=== PATIENT | female | born 1960 | race Caucasian/White ===

== ENCOUNTER 2017-06-29 03:41 | Inpatient (IN) | payer MEDICARE, OTHER ==
[~2017-06-29] VITALS: Ht 175.3 cm; Wt 79.5 kg
[~2017-06-29 03:41] MED LIST: CITA20TA19 PO; ONDA8TAB9 PO
[2017-06-29] MEDS ORDERED: clindamycin-Cleocin 900mg/D5W 50 ML IV ONE (03:55)
[2017-06-29 04:11] LABS: BASOPHILS # (AUTO) 0.1 X10'3 (0-0.2); BASOPHILS % (AUTO) 1.1 % (0-1); EOSINOPHILS # (AUTO) 0.2 X10'3 (0-0.9); EOSINOPHILS % (AUTO) 2.6 % (0-6); HEMATOCRIT 43.8 % (35.0-45.0); HEMOGLOBIN 14.6 g/dl (12.0-16.0); LYMPHOCYTES # (AUTO) 2.9 X10'3 (1.1-4.8); LYMPHOCYTES % (AUTO) 38.4 % (21-51); MEAN CORPUSCULAR HEMOGLOBIN 29.8 PG (27.0-31.0); MEAN CORPUSCULAR HGB CONC 33.3 % (33.0-36.5); MEAN CORPUSCULAR VOLUME 89.2 FL (78-98); MEAN PLATELET VOLUME 7.5 FL (7.4-10.4); MONOCYTES # (AUTO) 0.6 X10'3 (0-0.9); MONOCYTES % (AUTO) 7.8 % (2-12); NEUTROPHILS # (AUTO) 3.8 X10'3 (1.8-7.7); NEUTROPHILS % (AUTO) 50.1 % (42-75); PLATELET COUNT 192 X10'3 (140-440); RED BLOOD COUNT 4.91 X10'6 (4.20-5.60); WHITE BLOOD COUNT 7.5 X10'3 (4.5-11.0)
[2017-06-29 04:29] LABS: ALANINE AMINOTRANSFERASE 15 U/L (12-78); ALBUMIN 2.8 G/DL (3.4-5.0); ALBUMIN/GLOBULIN RATIO 0.9 (1.1-1.5); ALKALINE PHOSPHATASE 41 IU/L (46-116); ANION GAP 6 (8-16); ASPARTATE AMINO TRANSFERASE 14 U/L (10-37); BILIRUBIN,TOTAL 0.3 MG/DL (0.1-1.0); BLOOD UREA NITROGEN 14 MG/DL (7-18); BUN/CREATININE RATIO 15.9 (6.6-38.0); CALCIUM 8.8 MG/DL (8.5-10.1); CHLORIDE 103 MMOL/L (99-107); CREATININE 0.88 MG/DL (0.40-0.90); GLUCOSE 105 MG/DL (70-104); POTASSIUM 3.7 MMOL/L (3.5-5.1); SODIUM 140 MMOL/L (135-145); TOTAL CARBON DIOXIDE 30.7 MMOL/L (24-32); eGFR 66 ML/MIN
[2017-06-29] MEDS ORDERED: ondansetron/PF 4mg/2ml inj IV ONE (05:00)
[2017-06-29] MEDS ORDERED: morphine 4 MG/ML inj SYRINge IV ONE (05:00)
[2017-06-29] MEDS ORDERED: bisacodyl 10mg suppository rectal RC PRN (05:10)
[2017-06-29] MEDS ORDERED: HYDROcodone/acetaminophen 5mg/325mg tablet PO PRN (05:10)
[2017-06-29] MEDS ORDERED: diphenhydrAMINE 25mg capsule PO PRN (05:10)
[2017-06-29] MEDS ORDERED: metoclopramide 5 mg/ml inj IV PRN (05:10)
[2017-06-29] MEDS ORDERED: acetaminophen 650mg rectal suppository RC PRN (05:10)
[2017-06-29] MEDS ORDERED: acetaminophen 325mg tablet PO PRN (05:10)
[2017-06-29] MEDS ORDERED: ondansetron/PF 4mg/2ml inj IV PRN (05:10)
[2017-06-29] MEDS ORDERED: HYDROmorphone inj. 0.5 MG/0.5 ML DISP.SYRIN IV PRN ×2 (05:10)
[2017-06-29] MEDS ORDERED: mag hydrox/Alum hydrox/simeth 30ml oral suspension PO PRN (05:10)
[2017-06-29] MEDS ORDERED: HYDROcodone/acetaminophen 10/325mg tab PO PRN (05:10)
[2017-06-29] MEDS ORDERED: diphenhydrAMINE 50 mg/ml inj IV PRN (05:10)
[2017-06-29] MEDS ORDERED: magnesium hydroxide 30ml (MOM) UD suspension PO PRN (05:10)
[2017-06-29] MEDS ORDERED: morphine 4 MG/ML inj SYRINge IV PRN (05:10)
[2017-06-29] MEDS: normal saline 1000ml 1,000 ML IV SCH ×2 (05:37→15:12)
[2017-06-29] MEDS ORDERED: ondansetron 4mg rapidly disintigrating tab PO PRN (06:20)
[2017-06-29 06:46] LABS: MAGNESIUM 1.9 MG/DL (1.5-2.4)
[2017-06-29 07:23] LABS: CLARITY,URINE CLEAR (Clear); COLOR,URINE YELLOW (Yellow); GLUCOSE, URINE NEGATIVE (Neg); KETONES,URINE NEGATIVE (Neg); LEUKOCYTE ESTERASE ,URINE NEGATIVE (Neg); NITRITES, URINE NEGATIVE (Neg); OCCULT BLOOD,URINE NEGATIVE (Neg); PROTEIN,URINE NEGATIVE (Neg)
[2017-06-29 07:24] LABS: UA COLLECTION TYPE CLN CATCH MIDSTREAM
[2017-06-29] MEDS: citalopram 20mg tablet PO SCH (07:35)
[2017-06-29] MEDS: nicotine 21mg patch - 24 hr TD SCH (07:35)
[2017-06-29] MEDS: pantoprazole 40mg Tablet.DR PO SCH (07:35)
[2017-06-29] MEDS: heparin, porcine 5000 units/ml vial SQ SCH ×2 (07:36→20:57)
[2017-06-29] MEDS: docusate sod 100mg capsule PO SCH ×2 (07:37→20:00)
[2017-06-29] MEDS ORDERED: ceFAZolin 1GM/D5W- ADD-VANTAGE 50 ML IV SCH (08:00)
[2017-06-29 10:13] LABS: URINE AMPHETAMINE SCREEN NEGATIVE (Neg); URINE BARBITUATE SCREEN NEGATIVE (Neg); URINE BENZODIAZEPINES SCREEN POSITIVE (Neg); URINE CANNABINOID SCREEN NEGATIVE (Neg); URINE COCAINE SCREEN NEGATIVE (Neg); URINE METHADONE SCREEN POSITIVE (Neg); URINE OPIATE SCREEN POSITIVE (Neg); URINE PHENCYCLIDINE SCREEN NEGATIVE (Neg)
[2017-06-29] MEDS ORDERED: GABA-532 PO (10:42)
[2017-06-29] MEDS ORDERED: HYDR-3972 PO (10:42)
[2017-06-29] MEDS ORDERED: DIAZ10TA5 PO (10:42)
[2017-06-29] MEDS ORDERED: vancomycin/NS 1 GM ADD-VANTAGE 250 ML IV SCH (13:00)
[2017-06-29] MEDS: piperacillin/tazo 3.375gm/50ml 50 ML IV SCH ×2 (14:41→20:51)
[2017-06-29] MEDS: vancomycin/NS 1 GM ADD-VANTAGE 250 ML IV SCH (15:12)
[2017-06-29 17:00] VITALS: BP 100/67
[2017-06-29] MEDS: morphine 4 MG/ML inj SYRINge IV PRN (17:40)
[2017-06-29 19:30] VITALS: BP 111/64
[2017-06-29] MEDS: lactobacillus rhamnosus 10,000 MMU CELLS/CAPSULE PO SCH (20:54)
[2017-06-29] MEDS ORDERED: temazepam 15mg capsule PO PRN (21:00)
[2017-06-30] VITALS: BP 102/51
[2017-06-30] MEDS: morphine 4 MG/ML inj SYRINge IV PRN ×5 (00:24→22:28)
[2017-06-30] MEDS: piperacillin/tazo 3.375gm/50ml 50 ML IV SCH ×4 (02:11→20:00)
[2017-06-30] MEDS: vancomycin/NS 1 GM ADD-VANTAGE 250 ML IV SCH ×2 (03:10→15:00)
[2017-06-30] MEDS: normal saline 1000ml 1,000 ML IV SCH ×3 (05:42→21:06)
[2017-06-30 06:01] LABS: BASOPHILS # (AUTO) 0.1 X10'3 (0-0.2); BASOPHILS % (AUTO) 1.3 % (0-1); EOSINOPHILS # (AUTO) 0.1 X10'3 (0-0.9); EOSINOPHILS % (AUTO) 1.2 % (0-6); HEMATOCRIT 40.6 % (35.0-45.0); HEMOGLOBIN 13.6 g/dl (12.0-16.0); LYMPHOCYTES # (AUTO) 2.3 X10'3 (1.1-4.8); MEAN CORPUSCULAR HEMOGLOBIN 29.8 PG (27.0-31.0); MEAN CORPUSCULAR HGB CONC 33.5 % (33.0-36.5); MEAN CORPUSCULAR VOLUME 89.1 FL (78-98); MEAN PLATELET VOLUME 7.3 FL (7.4-10.4); MONOCYTES # (AUTO) 0.4 X10'3 (0-0.9); MONOCYTES % (AUTO) 5.5 % (2-12); NEUTROPHILS # (AUTO) 4.8 X10'3 (1.8-7.7); PLATELET COUNT 186 X10'3 (140-440); RED BLOOD COUNT 4.55 X10'6 (4.20-5.60); RED CELL DISTRIBUTION WIDTH 14.2 % (11.5-14.5); WHITE BLOOD COUNT 7.8 X10'3 (4.5-11.0)
[2017-06-30 06:22] LABS: ALANINE AMINOTRANSFERASE 13 U/L (12-78); ALBUMIN 2.3 G/DL (3.4-5.0); ALBUMIN/GLOBULIN RATIO 0.8 (1.1-1.5); ALKALINE PHOSPHATASE 33 IU/L (46-116); ANION GAP 7 (8-16); ASPARTATE AMINO TRANSFERASE 14 U/L (10-37); BILIRUBIN,TOTAL 0.4 MG/DL (0.1-1.0); BLOOD UREA NITROGEN 9 MG/DL (7-18); BUN/CREATININE RATIO 13.4 (6.6-38.0); CALCIUM 8.3 MG/DL (8.5-10.1); CHLORIDE 109 MMOL/L (99-107); CREATININE 0.67 MG/DL (0.40-0.90); GLUCOSE 86 MG/DL (70-104); POTASSIUM 4.4 MMOL/L (3.5-5.1); SODIUM 143 MMOL/L (135-145); TOTAL CARBON DIOXIDE 26.8 MMOL/L (24-32); TOTAL PROTEIN 5.3 G/DL (6.4-8.2); eGFR > 90 ML/MIN
[2017-06-30] MEDS: lactobacillus rhamnosus 10,000 MMU CELLS/CAPSULE PO SCH ×2 (08:00→20:00)
[2017-06-30] MEDS: docusate sod 100mg capsule PO SCH ×2 (08:00→20:00)
[2017-06-30] MEDS: heparin, porcine 5000 units/ml vial SQ SCH ×2 (08:00→20:00)
[2017-06-30] MEDS: pantoprazole 40mg Tablet.DR PO SCH (08:00)
[2017-06-30] MEDS: nicotine 21mg patch - 24 hr TD SCH ×2 (08:00→08:02)
[2017-06-30] MEDS: citalopram 20mg tablet PO SCH (08:00)
[2017-06-30 12:00] VITALS: BP_SYST 106; BP_SYST 123; BP_DIAS 67; BP_DIAS 71
[2017-06-30] MEDS ORDERED: enoxaparin 40mg/0.4ml syringe SUBCUT SCH (13:45)
[2017-06-30 18:00] VITALS: BP 143/82
[2017-07-01] VITALS: BP 127/71
[2017-07-01] MEDS: piperacillin/tazo 3.375gm/50ml 50 ML IV SCH ×2 (01:36→07:03)
[2017-07-01] MEDS ORDERED: VANCOMYCIN LEVEL IV ONE (02:30)
[2017-07-01] MEDS: morphine 4 MG/ML inj SYRINge IV PRN ×3 (02:58→11:16)
[2017-07-01] MEDS: vancomycin/NS 1 GM ADD-VANTAGE 250 ML IV SCH (03:03)
[2017-07-01 05:58] LABS: BASOPHILS % (AUTO) 0.5 % (0-1); EOSINOPHILS # (AUTO) 0.1 X10'3 (0-0.9); EOSINOPHILS % (AUTO) 1.3 % (0-6); HEMATOCRIT 39.3 % (35.0-45.0); LYMPHOCYTES # (AUTO) 1.8 X10'3 (1.1-4.8); LYMPHOCYTES % (AUTO) 28.3 % (21-51); MEAN CORPUSCULAR HEMOGLOBIN 29.6 PG (27.0-31.0); MEAN CORPUSCULAR VOLUME 89.6 FL (78-98); MEAN PLATELET VOLUME 7.5 FL (7.4-10.4); MONOCYTES # (AUTO) 0.4 X10'3 (0-0.9); MONOCYTES % (AUTO) 5.7 % (2-12); NEUTROPHILS % (AUTO) 64.2 % (42-75); PLATELET COUNT 165 X10'3 (140-440); RED BLOOD COUNT 4.38 X10'6 (4.20-5.60); RED CELL DISTRIBUTION WIDTH 13.8 % (11.5-14.5); WHITE BLOOD COUNT 6.3 X10'3 (4.5-11.0)
[2017-07-01 06:25] LABS: ALANINE AMINOTRANSFERASE 14 U/L (12-78); ALBUMIN 2.4 G/DL (3.4-5.0); ALBUMIN/GLOBULIN RATIO 0.8 (1.1-1.5); ALKALINE PHOSPHATASE 32 IU/L (46-116); ANION GAP 9 (8-16); ASPARTATE AMINO TRANSFERASE 13 U/L (10-37); BILIRUBIN,TOTAL 0.5 MG/DL (0.1-1.0); BLOOD UREA NITROGEN 6 MG/DL (7-18); BUN/CREATININE RATIO 9.8 (6.6-38.0); CALCIUM 8.2 MG/DL (8.5-10.1); CHLORIDE 111 MMOL/L (99-107); CREATININE 0.61 MG/DL (0.40-0.90); GLUCOSE 93 MG/DL (70-104); POTASSIUM 3.6 MMOL/L (3.5-5.1); SODIUM 144 MMOL/L (135-145); TOTAL CARBON DIOXIDE 23.8 MMOL/L (24-32); TOTAL PROTEIN 5.5 G/DL (6.4-8.2); eGFR > 90 ML/MIN
[2017-07-01 06:28] LABS: VANCOMYCIN,TROUGH 25.3 UG/ML (6.0-14.0)
[2017-07-01] MEDS: docusate sod 100mg capsule PO SCH (07:03)
[2017-07-01] MEDS: nicotine 21mg patch - 24 hr TD SCH (07:03)
[2017-07-01] MEDS: pantoprazole 40mg Tablet.DR PO SCH (07:03)
[2017-07-01] MEDS: citalopram 20mg tablet PO SCH (07:03)
[2017-07-01] MEDS: lactobacillus rhamnosus 10,000 MMU CELLS/CAPSULE PO SCH (07:03)
[2017-07-01] MEDS: heparin, porcine 5000 units/ml vial SQ SCH (07:04)
[2017-07-01] MEDS: normal saline 1000ml 1,000 ML IV SCH (07:06)
[2017-07-01 07:55] VITALS: BP 144/79
[2017-07-01] MEDS ORDERED: LACT1CAP26 PO (10:41)
[2017-07-01] MEDS ORDERED: SULF1TAB49 PO (10:41)
[2017-07-01 12:08] VITALS: BP 143/84
[2017-07-01] MEDS ORDERED: VANCOMYCIN LEVEL IV NR (14:30)
== END 2017-07-01 13:24 | disposition home or self-care (01) | DRG 603 ==
LOC: ER 03:42 → ED HOLD 05:06 → EDBEDREQ 15:28 → MED 3N 17:00
PROVIDERS: ADMIT Family Medicine; ATTEND Family Medicine
DX: L03.116 Cellulitis of left lower limb (principal); E44.1 Mild protein-calorie malnutrition; J44.9 Chronic obstructive pulmonary disease, unspecified; M79.7 Fibromyalgia; L03.115 Cellulitis of right lower limb; K31.9 Disease of stomach and duodenum, unspecified; F15.90 Other stimulant use, unspecified, uncomplicated; F17.200 Nicotine dependence, unspecified, uncomplicated; F32.9 Major depressive disorder, single episode, unspecified; F41.9 Anxiety disorder, unspecified; T22.112A Burn of first degree of left forearm, initial encounter; X08.8XXA Exposure to other specified smoke, fire and flames, initial encounter; Z90.710 Acquired absence of both cervix and uterus; Z91.19 Patient's noncompliance with other medical treatment and regimen; Z68.25 Body mass index [BMI] 25.0-25.9, adult; Z88.1 Allergy status to other antibiotic agents; Z59.0 Homelessness; Z88.8 Allergy status to other drugs, medicaments and biological substances; Y93.89 Activity, other specified; Y92.89 Other specified places as the place of occurrence of the external cause; Y99.8 Other external cause status
CPT/HCPCS: 36415; 73590; 80053; 80202; 80305; 81003; 83605; 83735; 83880; 85025; 87040; 87070; 93970; 96365; 99285; A6212; A6222; A6449; J0690; J1644; J1650; J2270; J2405; J2543; J3370; J3490; J7030

== ENCOUNTER 2018-07-25 10:47 | Emergency (ER) | payer MEDICARE, OTHER ==
[~2018-07-25] VITALS: Ht 175.3 cm; Wt 87.5 kg
[~2018-07-25 10:47] MED LIST changes: -CITA20TA19 PO; +GABA-532 PO; +LACT1CAP26 PO; -ONDA8TAB9 PO
[2018-07-25] MEDS ORDERED: CYCL-1 PO (11:27)
[2018-07-25] MEDS ORDERED: ketorolac trometh inj. 60 MG/2 ML VIAL IM ONE (11:30)
--- NOTE | 2018-07-25 11:35 | NUR ---
Spoke to Dr. Fisher about pt's VS. States he feels that this is pt's baseline as she has smoking hx and diagnosed COPD, as well as taking chronic pain medications.
[2018-07-25 12:06] VITALS: BP 101/61
== END 2018-07-25 12:09 | disposition home or self-care (01) ==
LOC: ER 10:48
DX: S13.4XXA Sprain of ligaments of cervical spine, initial encounter (principal); M54.5 Low back pain; M62.830 Muscle spasm of back; J44.9 Chronic obstructive pulmonary disease, unspecified; M79.7 Fibromyalgia; F17.200 Nicotine dependence, unspecified, uncomplicated; G89.29 Other chronic pain; Z59.0 Homelessness; Z90.710 Acquired absence of both cervix and uterus; Z98.890 Other specified postprocedural states; Z88.1 Allergy status to other antibiotic agents; Z79.899 Other long term (current) drug therapy; Z88.6 Allergy status to analgesic agent; V49.88XA Car occupant (driver) (passenger) injured in other specified transport accidents, initial encounter; Y93.89 Activity, other specified; Y92.413 State road as the place of occurrence of the external cause; Y99.9 Unspecified external cause status
CPT/HCPCS: 96372; 99284; J1885